=== PATIENT | male | born 1965 | race Caucasian/White ===

== ENCOUNTER → 2016-09-12 | Outpatient (CLI) | payer OTHER ==
[~2016-09-12] MED LIST: ATENOLOL100 MG PO; IRON325 MG PO; NIFEDIPINE ER90 MG PO; NORCO 5/3251 TABLET PO; TRIAMTERENE-HC1 EAC1 PO
== END | disposition home or self-care (01) ==
LOC: CDC 14:14
DX: I45.9 Conduction disorder, unspecified (principal); K42.9 Umbilical hernia without obstruction or gangrene
CPT/HCPCS: 93000

== ENCOUNTER 2016-09-27 05:36 | Day surgery (SDC) | payer OTHER ==
[~2016-09-27] VITALS: Ht 180.3 cm; Wt 106.1 kg
[~2016-09-27 05:36] MED LIST changes: +NORVASC2.5 MG PO; +VIVLODEX10 MG PO
[2016-09-27 05:59] VITALS: BP 151/85
[2016-09-27] MEDS ORDERED: NORCO 5/3251 TABLET PO (09:07)
[2016-09-27] MEDS ORDERED: MOTRIN600 MG PO (09:07)
[2016-09-27 09:52] VITALS: BP 169/93
[2016-09-27 10:45] VITALS: BP 166/87
== END 2016-09-27 11:00 | disposition home or self-care (01) ==
LOC: SDC 05:36
PROC: 0WUF0JZ Supplement Abdominal Wall with Synthetic Substitute, Open Approach (ICD-10-PCS; principal; 2016-09-27)
DX: K42.9 Umbilical hernia without obstruction or gangrene (principal); I10 Essential (primary) hypertension; Z82.49 Family history of ischemic heart disease and other diseases of the circulatory system; Z80.49 Family history of malignant neoplasm of other genital organs
CPT/HCPCS: C1781; J0690; J2250; J3010; S0020